=== PATIENT | male | born 1975 | race Caucasian/White ===

== ENCOUNTER 2016-09-07 06:04 | Emergency (ER) | payer MEDICAID ==
[~2016-09-07] VITALS: Ht 162.6 cm; Wt 86.0 kg
[2016-09-07 07:41] VITALS: BP 141/99
== END 2016-09-07 07:58 | disposition home or self-care (01) ==
LOC: ER 06:36
DX: M54.12 Radiculopathy, cervical region (principal); R03.0 Elevated blood-pressure reading, without diagnosis of hypertension
CPT/HCPCS: 72125; 99284; Z7610